=== PATIENT | male | born 1960 | race African-American/Black ===

== ENCOUNTER 2024-07-08 08:54 | Emergency (ER) | payer MEDICAID ==
[~2024-07-08] VITALS: Ht 172.7 cm; Wt 93.0 kg
[2024-07-08 09:00] VITALS: O2SAT 99
[2024-07-08 09:02] VITALS: BP 159/89; PULSE 98; RESP 18; TEMP 36.9; O2SAT 97
== END 2024-07-08 10:10 | disposition home or self-care (01) ==
LOC: ER 08:54
DX: N40.0 Benign prostatic hyperplasia without lower urinary tract symptoms (principal); R33.8 Other retention of urine; I10 Essential (primary) hypertension; Z88.1 Allergy status to other antibiotic agents; Z88.5 Allergy status to narcotic agent; Z98.890 Other specified postprocedural states
CPT/HCPCS: 99281